=== PATIENT | female | born 1945 | race Caucasian/White ===

== ENCOUNTER 2016-09-25 05:31 | Day surgery (SDC) | payer OTHER ==
[2016-09-20 12:46] LABS: BASOPHILS 0 %; EOSINOPHILS 3.3 %; EOSINOPHILS ABSOLUTE 0.07 10/3/uL (0.0-0.53); HEMOGLOBIN 10.9 g/dL (12.0-16.0); LYMPHOCYTES 47.9 %; LYMPHOCYTES ABSOLUTE 1.01 10/3/uL (0.67-4.30); MEAN CORPUSCULAR HEMOGLOB 33.4 pg (26.0-34.0); MEAN CORPUSCULAR VOLUME 101.2 fL (80-100); MEAN PLATELET VOLUME 11.7 fL (9.2-13.0); MONOCYTES 6.2 %; MONOCYTES ABSOLUTE 0.13 10/3/uL (0.21-1.20); NEUTROPHILS 42.6 %; PLATELET COUNT 74 10/3/uL (150-400); RBC DISTRIBUTION WIDTH 14.8 % (12.0-16.0); RED CELL COUNT 3.26 10/6/uL (4.0-5.6)
[2016-09-20 12:56] LABS: WHITE BLOOD CELLS 2.1 10/3/uL (4.5-10.5)
[2016-09-20 12:58] LABS: BUN (BLOOD UREA NITROGEN) 12 MG/DL (6-23); CALCIUM, SERUM 9.1 MG/DL (8.5-10.4); CHLORIDE, SERUM 115 MMOL/L (96-112); CO2 (CARBON DIOXIDE) 26 MMOL/L (24-34); CREATININE 1.13 MG/DL (0.55-1.02); GFR AFRICAN AMERICAN 57 ML/MIN (>=60); GFR NON AFRICAN AMERICAN 50 ML/MIN (>=60); GLUCOSE, SERUM 94 MG/DL (60-99); MANUAL DIFF NO %; POTASSIUM, SERUM 3.4 MMOL/L (3.5-5.3); SODIUM, SERUM 149 MMOL/L (135-148)
[2016-09-20 13:15] LABS: EOSINOPHILS 4 %; EOSINOPHILS ABSOLUTE (CALC) 0.08 10/3/uL (0.0-0.53); LYMPHOCYTES 47 %; LYMPHOCYTES ABSOLUTE (CALC) 0.99 10/3/uL (0.67-4.30); MACROCYTES 1+ (5-10/OIF) (0-5/OIF); NEUTROPHILS ABSOLUTE (CALC) 1.03 10/3/uL (2.02-8.40); PLATELET ESTIMATE DEC (ADEQUATE); SEGMENTED NEUTROPHIL (0) 49 %; TOTAL NUCLEATED CELLS 100
[2016-09-20 13:48] LABS: ASCORBIC ACID (UR NOT ORDER) NEG (NEG); BILIRUBIN, URINE NEGATIVE (NEG); KETONE, URINE NEGATIVE (NEG); LEUKOCYTE ESTERASE(NOT OR MOD (NEG); WBC (NOT ORDERED) (RFLEX) 6 (0-5)
--- NOTE | ~2016-09-25 | OP ---
Record Of [facility] [address] [place]. [address] NAME: NAIMA ISABEL : 49 STATUS : [facility]#: [id number] AGE: 71 ADM/REG DATE : 09/25/16 MR#: [id number] REPORT SERV DATE: 09/27/16 DICTATED BY: KOLTON WERNER DATE: 09/27/16 REPORT STATUS : Draft TRANSCRIBED BY: MODL DATE: 09/27/16 DATE OF PROCEDURE: 09/25/2016 PREOPERATIVE DIAGNOSIS: Postmenopausal bleeding. Thickened endometrial stripe. POSTOPERATIVE DIAGNOSIS: Postmenopausal bleeding. Thickened endometrial stripe. PROCEDURE: Hysteroscopy with dilation and curettage under direct ultrasound guidance, CPT code 51130. SURGEON: Kolton Werner MD. ANESTHESIA: General. ESTIMATED BLOOD LOSS: Less than 10 mL. CRYSTALLOID: 600 mL. DRAINS: Hernández. FINDINGS: Thickening of her anterior abdominal uterine wall, grossly abnormal in appearance but no overt evidence of hyperplasia. She also had a cystic lesion near the fundus of the uterus which has likely represented an ovary. PATHOLOGY: Endometrial curettings. COMPLICATIONS: None. POSTOPERATIVE PLAN: Extubated to PACU. PROCEDURE IN DETAIL: After informed consent was signed, the patient was taken to the operating room and placed in dorsal supine position where adequate general anesthesia was administered. She was placed in dorsal lithotomy position and Kishore stirrups and prepped and draped in the usual fashion and a Hernández catheter was placed. The bladder was distended with approximately 300 mL of normal saline to facilitate ultrasound guidance. The speculum was placed in the vagina, anterior cervix grasped, the entire endocervix was closed and completely stenotic and an 11-blade scalpel was then used to provide perforation to the endocervical canal and under ultrasound guidance, endometrial sound was then placed through the endocervical canal into the endometrial canal. The cervix was then dilated, and a hysteroscope was placed through the endocervix and into the endometrial cavity with findings as above noted. The hysteroscope was removed and the cervix dilated further, and four quadrant sharp curettings were performed. As noted above, there was an anterior endometrial wall abnormality appreciated, nothing overtly neoplastic, but definitely abnormal. This concluded the procedure. The patient was placed back in dorsal supine position, awakened extubated, and sent to the PACU in stable condition. Record Of [facility] [address] [address] NAME: NAIMA ISABEL : 49 STATUS : [facility]#: [id number] AGE: 71 ADM/REG DATE : 09/25/16 MR#: [id number] REPORT SERV DATE: 09/27/16 DICTATED BY: KOLTON WERNER DATE: 09/27/16 REPORT STATUS : Draft TRANSCRIBED BY: IDA DATE: 09/27/16 TB/IDA Kolton Werner MD / [id number] CC: Kolton Werner MD
[~2016-09-25 05:31] MED LIST: AMIT100 PO; BENTYL10 PO; BOTOX INJECTIONS; TOPAMAX100 PO
== END 2016-09-25 12:53 | disposition home or self-care (01) ==
LOC: SDC 05:31
PROVIDERS: Obstetrics & Gynecology Gynecology
PROC: 0UDB8ZX Extraction of Endometrium, Via Natural or Artificial Opening Endoscopic, Diagnostic (ICD-10-PCS; principal; 2016-09-25 06:45)
DX: N95.0 Postmenopausal bleeding (principal); E03.9 Hypothyroidism, unspecified; K21.9 Gastro-esophageal reflux disease without esophagitis; D61.818 Other pancytopenia; G43.909 Migraine, unspecified, not intractable, without status migrainosus; R93.8 Abnormal findings on diagnostic imaging of other specified body structures; Z98.51 Tubal ligation status; Z87.442 Personal history of urinary calculi
CPT/HCPCS: 71020; 76856; 76998; 80048; 81001; 82962; 85025; 87086; 88305; 93005; J0694; J2250; J2405; J3010